=== PATIENT | female | born 1995 | race African-American/Black ===

== ENCOUNTER 2017-12-07 03:23 | Emergency (ER) | payer SELFPAY ==
[~2017-12-07] VITALS: Ht 162.6 cm; Wt 72.0 kg
[2017-12-07] MEDS ORDERED: ALBUTEROL SULFATE 2.5 MG/0.5 ML NEB SOLUTION NEB ONE (05:15)
[2017-12-07] MEDS ORDERED: IPRATROPIUM BROMIDE 0.5 MG/2.5 ML NEB SOLUTION NEB ONE (05:15)
[2017-12-07] MEDS ORDERED: 0.9% SODIUM CHLORIDE 5 ML NEB SOLUTION NEB ONE (05:22)
[2017-12-07] MEDS ORDERED: BENZONATATE 100 MG CAPSULE PO ONE (05:45)
[2017-12-07 06:07] VITALS: BP 131/76
== END 2017-12-07 06:17 | disposition home or self-care (01) ==
LOC: EMS 03:25
DX: J98.01 Acute bronchospasm (principal); F17.210 Nicotine dependence, cigarettes, uncomplicated; Z88.6 Allergy status to analgesic agent; Z88.8 Allergy status to other drugs, medicaments and biological substances
CPT/HCPCS: 94640; 99406